=== PATIENT | male | born 1955 | race Caucasian/White ===

== ENCOUNTER 2017-03-09 17:48 | Emergency (ER) | payer BC ==
[~2017-03-09] VITALS: Ht 188 cm; Wt 104.5 kg
[~2017-03-09 17:48] MED LIST: CLARITIN 1010 MG/TAB PO; HYZAAR 50-12.1 UDTAB PO; NORCO 325 MG-51 TAB PO
[2017-03-09 17:50] VITALS: TEMP 98.2
[2017-03-09] MEDS ORDERED: CEPHALEXIN500 M1 PO (19:15)
[2017-03-09 19:32] VITALS: BP 132/79; PULSE 78
== END 2017-03-09 19:30 | disposition home or self-care (01) ==
LOC: COL.ER 17:48
DX: S61.412A Laceration without foreign body of left hand, initial encounter (principal); I10 Essential (primary) hypertension; W26.8XXA Contact with other sharp object(s), not elsewhere classified, initial encounter; Y92.009 Unspecified place in unspecified non-institutional (private) residence as the place of occurrence of the external cause

== ENCOUNTER → 2017-03-24 | Emergency (ER) | payer BC ==
[~2017-03-24] MED LIST changes: +CEPHALEXIN500 M1 PO
[2017-03-24 11:03] VITALS: BP 145/80; PULSE 83; TEMP 97.9
== END ==
LOC: COL.ER 10:56
DX: S61.412D Laceration without foreign body of left hand, subsequent encounter (principal); X58.XXXD Exposure to other specified factors, subsequent encounter

== ENCOUNTER 2019-02-04 05:31 | Day surgery (SDC) | payer BC ==
[~2019-02-04] VITALS: Ht 188 cm; Wt 97.7 kg
[2019-02-04 05:57] VITALS: BP 123/81; PULSE 71; TEMP 97.6
[2019-02-04 09:20] VITALS: BP 108/62; PULSE 962; TEMP 97.3
--- NOTE | 2019-02-04 09:20 | NUR ---
The patient arrived back to [facility] from the recovery room at this time. The patient appears to be resting comfortably on the cart and reports minimal pain at his incision sites. The patient has ice chips from the recovery room and appears to be tolerating them well and denies wanting anything further to eat to drink at this time. The devi's was brought back to be at his bedside. Post operative vital signs were started at this time. Call light is within reach. Will continue to monitor the patient.
[2019-02-04] MEDS ORDERED: NORCO 325 MG-51 TAB PO (09:32)
[2019-02-04 09:35] VITALS: BP 104/61; PULSE 60
--- NOTE | 2019-02-04 09:35 | NUR ---
The patient appears more alert and agrees to try some ice water and applesauce at this time. The patient's remains at his bedside. The patient's vital signs appear stable. The patient was weaned off the oxygen at this time. Will continue to monitor the patient.
[2019-02-04 09:50] VITALS: BP 110/65; PULSE 57
--- NOTE | 2019-02-04 09:50 | NUR ---
The patient appeared to tolerate the applesauce well and was given a PRN dose of [place] one tab at this time. Call light is within reach. The patient denies any futher needs at this time. Will continue to monitor the patient.
[2019-02-04 10:05] VITALS: BP 112/75; PULSE 59
--- NOTE | 2019-02-04 10:05 | NUR ---
The patient appears to be resting comfortably on the cart at this time. The patient's vital signs appear stable. Call light is within reach. Will continue to monitor the patient.
--- NOTE | 2019-02-04 10:35 | NUR ---
The patient ambulated to the bathroom with the stand by assistance of one nurse and appeared to tolerate the activity well. The patient voided without difficulty and voices a desire to be discharged home. The nurse instructed the patient to get dressed and notify the staff when he is ready to review his discharge instructions.
--- NOTE | 2019-02-04 10:45 | NUR ---
Discharge instructions were reviewed with the patient and his at this time. They both verbalized understanding and have no questions for the nurse at this time. The patient's IV to his left hand was removed and a pressure dressing was applied to the site. The patient is dressed and ready to be escorted ou.t
--- NOTE | 2019-02-04 10:50 | NUR ---
The patient was escorted out via wheelchair to a private vehicle by KEIRY Linton. The patient's belongings and discharge paperwork were sent with him. The patient's is present to drive him home.
== END 2019-02-04 10:50 | disposition home or self-care (01) ==
LOC: SDCO 05:31
DX: K40.90 Unilateral inguinal hernia, without obstruction or gangrene, not specified as recurrent (principal)
CPT/HCPCS: J0330; J0690; J1100; J1885; J2405; J2704; J3010; J7120